=== PATIENT | male | born 1990 | race Caucasian/White ===

== ENCOUNTER 2019-05-08 17:07 | Emergency (ER) | payer SELFPAY ==
[~2019-05-08] VITALS: Ht 180.3 cm; Wt 93.2 kg
[2019-05-08 17:08] VITALS: BP 132/83
--- NOTE | 2019-05-08 17:15 | NUR ---
[employer] notified and on way
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
[2019-05-08] MEDS ORDERED: ONDANSETRON 2MG/ML, 2ML IVPush ONE (17:30)
[2019-05-08] MEDS ORDERED: SODIUM CHLORIDE FLUSH 10ML SYR IVF ONE ×2 (17:30)
[2019-05-08] MEDS ORDERED: MORPHINE SULFATE 4 MG/ML, 1ML IVPush PRN (17:30)
[2019-05-08] MEDS ORDERED: ONDANSETRON 2MG/ML, 2ML ONE (17:32)
[2019-05-08] MEDS ORDERED: MORPHINE SULFATE 4 MG/ML, 1ML ONE (17:33)
--- NOTE | 2019-05-08 17:36 | NUR ---
[employer] AT BEDSIDE.
--- NOTE | 2019-05-08 17:37 | NUR ---
PT MED NOTED FOR PAIN. SBAR RPT TO [facility] CERTIFIED ART THERAPIST. IVF INFUSING W/O DIFFICULTY. PT A&0 X 4, NAD NOTED.
--- NOTE | 2019-05-08 17:38 | NUR ---
LATE ENTRY 1725, SBAR RPT TO [facility] KAREEM LUCIO, JAMEEL.
[2019-05-08] MEDS ORDERED: SODIUM CHLORIDE 0.9% 1,000 ML IV ONE (18:11)
== END 2019-05-08 18:18 ==
LOC: ED 17:48
DX: S71.011A Laceration without foreign body, right hip, initial encounter (principal); Z90.81 Acquired absence of spleen; X99.8XXA Assault by other sharp object, initial encounter; Y93.89 Activity, other specified; Y92.410 Unspecified street and highway as the place of occurrence of the external cause; Y99.8 Other external cause status
CPT/HCPCS: 80047; 96374; 96375; 99284; J2270; J2405; J7030

== ENCOUNTER 2020-06-28 13:37 | Emergency (ER) | payer MEDICAID ==
[~2020-06-28] VITALS: Ht 180.3 cm; Wt 78.5 kg
[2020-06-28 13:42] VITALS: BP 119/76
[2020-06-28 14:02] LABS: BASOPHILS % (AUTO) 1 % (0-1); EOSINOPHILS % (AUTO) 1 % (1-7); LYMPHOCYTES % (AUTO) 11 % (22-44); MEAN CORPUSCULAR HEMOGLOBIN 31.7 pg (27.5-34.5); MEAN CORPUSCULAR HGB CONC 34.2 g/dL (33.2-36.2); MEAN PLATELET VOLUME 8.1 fL (7.4-10.4); MONOCYTES % (AUTO) 11 % (2-9); NEUTROPHILS % (AUTO) 76 % (42-75); PLATELET COUNT 392 x10^3/uL (130-400); RED BLOOD COUNT 4.64 x10^6/uL (4.38-5.82); RED CELL DISTRIBUTION WIDTH 14.1 % (9.4-14.8)
[2020-06-28 14:03] LABS: MD NO
[2020-06-28 14:13] LABS: ALANINE AMINOTRANSFERASE 22 U/L (12-78); ALBUMIN 3.6 g/dL (3.4-5.0); ANION GAP 4 mmol/L (5-15); CALCIUM 8.8 mg/dL (8.5-10.1); CHLORIDE 103 mmol/L (98-107); CREATININE 1.07 mg/dL (0.7-1.3)
[2020-06-28 14:16] LABS: ALKALINE PHOSPHATASE 93 U/L (45-117); BILIRUBIN,TOTAL 1.3 mg/dL (0.2-1.0); TOTAL PROTEIN 7.1 g/dL (6.4-8.2)
--- NOTE | 2020-06-28 14:41 | NUR ---
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
[2020-06-28] MEDS ORDERED: CEFTRIAXONE 1,000 MG IM ONE (15:30)
[2020-06-28] MEDS ORDERED: CEFTRIAXONE 1,000 MG ONE (15:32)
== END 2020-06-28 16:10 | disposition home or self-care (01) ==
LOC: ED 14:41
DX: L03.011 Cellulitis of right finger (principal)
CPT/HCPCS: 36415; 73130; 80053; 85025; 96372; 99284; J0696